=== PATIENT | male | born 1980 | race Caucasian/White ===

== ENCOUNTER 2024-07-22 10:00 | Emergency (ER) | payer OTHER, SELFPAY ==
[2024-07-22 10:04] VITALS: BP 134/77; PULSE 58; RESP 16; TEMP 36.1; O2SAT 97; BMI 30.8
--- NOTE | 2024-07-22 10:59 | DI.RAD.S_ITS ---
PROCEDURE: XR LUMBAR SPINE 2-3V INDICATIONS: fall on jetty rocks onto back. L lumbar pain TECHNIQUE: 3 views of the lumbar spine were acquired. COMPARISON: None. FINDINGS: Bones: 5 [id number] vertebrae are present. There is normal bony alignment. No vertebral body compression fractures. No suspicious bony lesions. Mild disc height loss. Mild facet arthrosis. Soft tissues: Overlying bowel gas pattern is normal. No suspicious soft tissue calcifications. IMPRESSION: No acute bony abnormality. Mild spondylitic changes with facet arthrosis. Dictated by: Derek Dorman M.D. on 07/22/2024 at 10:29 Approved by: Derek Dorman M.D. on 07/22/2024 at 10:30
--- NOTE | 2024-07-22 11:21 | ED_ITS ---
HPI - Back Pain/Injury <Osiris Funes PA-C - Last Filed: 07/22/24 12:18> General Chief Complaint: Back Pain/Injury Stated Complaint: back pain/injury Time Seen by Provider: 07/22/24 11:21 History of Present Illness HPI Narrative: Patient is a very pleasant 43-year-old male that presents to the emergency room department with lower lumbar pain, left paraspinal discomfort and pain. [place] he was walking on some rocks when he slipped. Patient landed on a large boulder on his butt area predominantly on the left. He sustained a fall, and sudden onset of lower back pain, left buttock pain. Patient has been taking ibuprofen at home for his discomfort pain limited relief. Presents to the emergency room department today because just wants to make sure that there is no acute fracture in his back due to the substantial amount of discomfort pain he is currently having. Patient denies radiculopathy, he denies any signs symptoms of cauda equina. He has no other further complaints. Patient ambulated without any issues or problems under his own power Related Data Previous Rx's Medication Instructions Recorded cyclobenzaprine 10 mg tablet 10 mg PO TID PRN muscle spasm #15 07/22/24 tabs ketorolac 10 mg tablet 10 mg PO TID PRN pain 5 days #15 07/22/24 tabs prednisone 10 mg tablet 10 mg PO DIRECTED #12 tabs 07/22/24 Review of Systems <Osiris Funes PA-C - Last Filed: 07/22/24 12:18> Review of Systems Narrative: Negative except as above Musculoskeletal Comments: Lumbar pain Exam <Osiris Funes PA-C - Last Filed: 07/22/24 12:18> Initial Vital Signs Initial Vital Signs: Vital Signs Temperature 97.0 F L 07/22/24 10:04 Pulse Rate 58 L 07/22/24 10:04 Respiratory Rate 16 07/22/24 10:04 Blood Pressure 134/77 07/22/24 10:04 Pulse Oximetry 97 07/22/24 10:04 Oxygen Delivery Method Room Air 07/22/24 10:04 Reviewed Const General: cooperative, healthy appearing, well developed, well groomed, in distress and other (Appears to be uncomfortable, has already taken ibuprofen this morning.) Eyes General: Yes appearance normal, both eyes and all related structures Pupils: PERRL EOM: EOM intact bilaterally Back/Spine/Pelvis Back: normal to inspection, back tenderness, No crepitance and No ecchymosis Other: Patient has no obvious signs of trauma, he has some generalized tenderness. Skin Other: No bruising is noted on exam Neuro General: patient alert, patient awake, patient oriented x3 and gait normal (Slow antalgic gait favoring the left lower extremity) Extrem Other: Patient has discomfort and pain with sitting, straight leg, dorsal and plantar flexion, moving his knee towards the ceiling. Antalgic gait favoring the left lower extremity. Cap refill is preserved, pulses are present. Psych Appearance: grossly normal and well kempt Speech and Movement: speech and movement normal Mood: congruent mood Affect: normal affect Attitude: cooperative Thought Process: normal Thought Content: normal Judgment: judgment good <Craig Man DO - Last Filed: 07/22/24 12:51> Initial Vital Signs Initial Vital Signs: Vital Signs Temperature 97.0 F L 07/22/24 10:04 Pulse Rate 58 L 07/22/24 10:04 Respiratory Rate 16 07/22/24 10:04 Blood Pressure 134/77 07/22/24 10:04 Pulse Oximetry 97 07/22/24 10:04 Oxygen Delivery Method Room Air 07/22/24 10:04 Scores <Osiris Funes PA-C - Last Filed: 07/22/24 12:18> GCS Citation: 15 Course <Osiris Funes PA-C - Last Filed: 07/22/24 12:18> Orders Ordered: ED Orders 07/22/24 10:59 XR lumbar spine 2-3V Stat Vital Signs Vital signs: Vital Signs - 8 hr 07/22/24 10:04 07/22/24 12:20 Temperature 97.0 F L Pulse Rate 58 L Respiratory Rate 16 16 Blood Pressure 134/77 Pulse Oximetry 97 Oxygen Delivery Method Room Air Reviewed <DO Ines Galan Last Filed: 07/22/24 12:51> Orders Ordered: ED Orders 07/22/24 10:59 XR lumbar spine 2-3V Stat Vital Signs Vital signs: Vital Signs - 8 hr 07/22/24 10:04 07/22/24 12:20 Temperature 97.0 F L Pulse Rate 58 L Respiratory Rate 16 16 Blood Pressure 134/77 Pulse Oximetry 97 Oxygen Delivery Method Room Air MDM - Back Pain/Injury <Osiris Funes PA-C - Last Filed: 07/22/24 12:18> Imaging Data lumbar spine: My Impression: No acute fractures, no acute abnormalities. Radiologist's Impression: [address] [address] XRay Report Signed Patient: Craig Roper MR#: [id number] : 1980 Acct:[id number] Age/Sex: 43 / M Date of Service: 07/22/24 Loc: ED Accession Number: [id number] Procedure: XR lumbar spine 2-3V Ordering Provider: Craig Man D.O. PROCEDURE: XR LUMBAR SPINE 2-3V INDICATIONS: fall on jet[place] rocks onto back. L lumbar pain TECHNIQUE: 3 views of the lumbar spine were acquired. COMPARISON: None. FINDINGS: Bones: 5 [id number] vertebrae are present. There is normal bony alignment. No vertebral body compression fractures. No suspicious bony lesions. Mild disc height loss. Mild facet arthrosis. Soft tissues: Overlying bowel gas pattern is normal. No suspicious soft tissue calcifications. IMPRESSION: No acute bony abnormality. Mild spondylitic changes with facet arthrosis. Dictated by: Derek Dorman M.D. on 07/22/2024 at 10:29 Approved by: Derek Dorman M.D. on 07/22/2024 at 10:30 [facility] Narrative Medical decision making narrative: Pleasant 43-year-old male presents to the emergency room department today after he sustained a fall. [place] some large rocks, he slipped and fell landing on a large boulder. He would landed on his buttocks, predominantly on the left side. He did not strike any other portion of his body. He did not hit his head. There was no loss of consciousness. He has had lower lumbar discomfort and pain, left buttock and left paraspinal discomfort pain he has been doing [id number] ibuprofen with some limited relief of his pain. He continued to have worsening pain today, presented to the emergency department he just wanted to make sure that nothing was broken in his back. Patient took Motrin around 8:00 a.m.. Lumbar x-rays are negative for any acute fractures. Supportive therapy and ED precautions. Prescriptions sent to the pharmacy. Patient states he does not need a work note. Differential diagnosis; fall, musculoskeletal strain, lumbar contusion. Discharge Plan Departure Patient Disposition: Home Clinical Impression: Strain of lumbar region Qualifiers: Encounter type: initial encounter Qualified Code(s): S39.012A - Strain of muscle, fascia and tendon of lower back, initial encounter Fall Qualifiers: Encounter type: initial encounter Qualified Code(s): W19.XXXA - Unspecified fall, initial encounter Instructions: DI for Low Back Pain, DI for Back Strain or Sprain Activity Restrictions/Additional Instructions: Lumbar x-rays are negative for any acute findings. Ice for the 1st 72 hours and ice and heat. Consider topical preparations Biofreeze, Salonpas, diclofenac/Voltaren. Prescriptions have been sent to your pharmacy. Reasons to present back to the emergency department. Rectal numbness, loss of bowel or bladder, numbness and tingling weakness to the lower extremities. Prescriptions: New ketorolac 10 mg tablet 10 mg PO TID PRN (Reason: pain) 5 Days Qty: 15 0RF cyclobenzaprine 10 mg tablet 10 mg PO TID PRN (Reason: muscle spasm) Qty: 15 0RF prednisone 10 mg tablet 10 mg PO DIRECTED Qty: 12 0RF Rx Instructions: see taper instructions 30 mg for 2 days, 20 mg for 2 days, 10 mg for 2 days. Stand Alone Forms: Patient Portal/API ED Sign-out <Craig Man, DO - Last Filed: 07/22/24 12:51> Cosign ED Attending Cosignature Attestation: Dr Man Co-Sign Statement: I was available for consultation during this patient's emergency department visit. This chart is signed by myself for administrative purposes only. I did not have direct contact with this patient during this visit. They were seen independently by the APC.
[2024-07-22 12:20] VITALS: RESP 16
== END 2024-07-22 12:21 | disposition home or self-care (01) ==
PROVIDERS: Emergency Provider Physician Assistant
DX: S39.012A Strain of muscle, fascia and tendon of lower back, initial encounter (principal); W01.0XXA Fall on same level from slipping, tripping and stumbling without subsequent striking against object, initial encounter
CPT/HCPCS: 72100; 99283